=== PATIENT | female | born 1990 | race African-American/Black ===

== ENCOUNTER 2017-11-24 07:17 | Inpatient (IN) | payer BC ==
[2017-11-24] VITALS (27 sets, daily range): BP systolic 97–138; BP diastolic 45–69
[~2017-11-24] VITALS: Ht 157.5 cm; Wt 137.4 kg
[2017-11-24 08:18] LABS: BASOPHIL (%) 0.2 % (0-1); EOSINOPHIL (%) 0.7 % (0-5); EOSINOPHIL COUNT 0.1 K/uL (0-0.3); HEMATOCRIT 34.3 % (36.0-46.0); HEMOGLOBIN 11.7 G/DL (11.9-15.5); IMMATURE GRANULOCYTE (%) 0.2 % (0.0-0.7); LYMPHOCYTE (%) 20.5 % (15-42); LYMPHOCYTE COUNT 1.7 K/uL (1.0-2.8); MCH 28.9 PG (29.0-34.0); MCHC 34.1 G/DL (30.0-36.0); MCV 84.7 FL (83-99); MONOCYTE (%) 7.1 % (3-12); MONOCYTE COUNT 0.6 K/uL (0-0.8); NEUTROPHIL (%) 71.3 % (45-76); PLATELET COUNT 189 K/uL (156-360); RBC DIS.WIDTH-CV 15.8 % (11.8-14.6); RBC DIS.WIDTH-SD 48.5 % (39-53); RED BLOOD COUNT 4.05 M/uL (3.80-5.20); WHITE BLOOD COUNT 8.4 K/uL (4.1-10.2)
[2017-11-24 09:17] LABS: AMPHETAMINE NEGATIVE (500 ng/mL); BARBITURATES NEGATIVE (200 ng/mL); BENZODIAZEPINES NEGATIVE (150 ng/mL); BUPRENORPHINE NEGATIVE (10 ng/mL); COCAINE NEGATIVE (150 ng/mL); METHADONE NEGATIVE (200 ng/mL); METHAMPHETAMINE NEGATIVE (500 ng/mL); OPIATES (MORPHINE) NEGATIVE (100 ng/mL); OXYCODONE NEGATIVE (100 ng/mL); PHENCYCLIDINE NEGATIVE (25 ng/mL); PROPOXYPHENE NEGATIVE (300 ng/mL); THC CANNABINOIDS NEGATIVE (50 ng/mL); TRICYCLIC ANTIDEPRESSANTS NEGATIVE (300 ng/mL)
[2017-11-24 11:22] LABS: TREPONEMA ANTIBODY NEGATIVE (NEGATIVE)
[2017-11-24] MEDS ORDERED: PRENATAL TABLE1 EAC3 PO (13:18)
[2017-11-24] MEDS ORDERED: ZANTAC150 MG PO (13:18)
[2017-11-25] MEDS ORDERED: IBUPROFEN800 MG PO (10:04)
[2017-11-25 23:01] VITALS: BP 119/75
== END 2017-11-26 13:15 | disposition home or self-care (01) | DRG 775 ==
LOC: LDRP-OP 07:17 → 2WEST 07:18 → LDRP-OP 01-01 13:26
PROVIDERS: Obstetrics & Gynecology Gynecology
PROC: 0HQ9XZZ Repair Perineum Skin, External Approach (ICD-10-PCS; principal; 2017-11-24)
PROC: 10E0XZZ Delivery of Products of Conception, External Approach (ICD-10-PCS; principal; 2017-11-24)
PROC: 10907ZC Drainage of Amniotic Fluid, Therapeutic from Products of Conception, Via Natural or Artificial Opening (ICD-10-PCS; 2017-11-24)
PROC: 3E0S3BZ Introduction of Anesthetic Agent into Epidural Space, Percutaneous Approach (ICD-10-PCS; 2017-11-24)
PROC: 00HU33Z Insertion of Infusion Device into Spinal Canal, Percutaneous Approach (ICD-10-PCS; 2017-11-24)
DX: O41.03X1 Oligohydramnios, third trimester, fetus 1 (principal); Z68.43 Body mass index [BMI] 50.0-59.9, adult; O70.0 First degree perineal laceration during delivery; E66.01 Morbid (severe) obesity due to excess calories; O99.214 Obesity complicating childbirth; Z37.0 Single live birth; Z3A.39 39 weeks gestation of pregnancy; O12.04 Gestational edema, complicating childbirth
CPT/HCPCS: 85025; 86780; C1755; J2795; J3010; J7120